=== PATIENT | female | born 1930 | race Caucasian/White ===

== ENCOUNTER 2017-04-17 22:57 | Emergency (ER) | payer MEDICARE, OTHER ==
[~2017-04-17] VITALS: Ht 152.4 cm; Wt 59.9 kg
[2017-04-17 23:05] VITALS: Ht 152.4 cm; Wt 59.9 kg
[2017-04-17 23:31] VITALS: BP 142/83
== END 2017-04-17 23:31 | disposition home or self-care (01) ==
LOC: ED 22:57
DX: S51.812A Laceration without foreign body of left forearm, initial encounter (principal); I10 Essential (primary) hypertension; E11.9 Type 2 diabetes mellitus without complications; Z88.1 Allergy status to other antibiotic agents; W22.8XXA Striking against or struck by other objects, initial encounter; Y93.89 Activity, other specified; Y99.8 Other external cause status; Y92.89 Other specified places as the place of occurrence of the external cause

== ENCOUNTER 2019-03-26 10:27 | Emergency (ER) | payer MEDICARE, OTHER ==
[~2019-03-26] VITALS: Ht 144.8 cm; Wt 59.0 kg
[2019-03-26 10:33] VITALS: Ht 144.8 cm; Wt 59.0 kg
[2019-03-26 12:52] VITALS: BP 134/62
== END 2019-03-26 12:52 | disposition home or self-care (01) ==
LOC: ED 10:27
DX: R05 Cough (principal); R06.02 Shortness of breath; R07.0 Pain in throat
CPT/HCPCS: 87804

== ENCOUNTER 2019-04-04 10:33 | Inpatient (IN) | payer OTHER, MEDICARE ==
[~2019-04-04] VITALS: Ht 134.6 cm; Wt 56.7 kg
[2019-04-04 10:50] VITALS: Ht 134.6 cm; Wt 56.7 kg
[2019-04-04 11:49] LABS: BASOPHIL % 0.2 % (0-2); PLATELET COUNT 390 x10^3mcL (130-400)
[2019-04-04 11:49] LABS: microscopic required? YES; urine erythrocyte NEGATIVE (NEGATIVE)
[2019-04-04 11:51] LABS: RED CELL DISTRIBUTION WIDTH 14.9 % (11.5-14.5)
[2019-04-04 11:55] LABS: CALCIUM 8.8 mg/dL (8.5-10.1); CARBON DIOXIDE 26.1 mmol/L (21-32); CHLORIDE SERUM 98 mmol/L (98-107); CREATININE SERUM 0.7 mg/dL (0.6-1.0); GLUCOSE SERUM 132 mg/dL (74-106); POTASSIUM SERUM 3.8 mmol/L (3.5-5.1); SODIUM SERUM 134 mmol/L (136-145)
[2019-04-04 12:00] LABS: ALBUMIN 3.4 g/dL (3.4-5.0); ALKALINE PHOSPHATASE 109 U/L (46-116); ALT/SGPT 39 U/L (14-59); AST/SGOT 31 U/L (15-37); BILIRUBIN TOTAL 0.4 mg/dL (0.20-1.00)
[2019-04-04 12:07] LABS: TOTAL PROTEIN, SERUM 8.5 g/dL (6.4-8.2)
[2019-04-04] MEDS ORDERED: AMLODIPINE BESY10 M2 PO (14:15)
[2019-04-04] MEDS ORDERED: ALPHAGAN P5 M1 OP ×2 (14:18→15:25)
[2019-04-04] MEDS ORDERED: MONTELUKAST SOD10 M1 PO (14:18)
[2019-04-04] MEDS ORDERED: TIMOLOL MALEATE5 M3 OU (14:21)
[2019-04-04] MEDS ORDERED: BASAGLAR K100 UNIT/1 SQ ×2 (14:24→15:23)
[2019-04-04 14:49] VITALS: BP 123/54
[2019-04-04] MEDS ORDERED: JANUVIA100 M1 PO (15:21)
[2019-04-04] MEDS ORDERED: ARICEPT10 MG PO (15:21)
[2019-04-04] MEDS ORDERED: FORTAMET500 M1 PO (15:22)
[2019-04-04] MEDS ORDERED: COZAAR25 M1 PO (15:23)
[2019-04-04] MEDS ORDERED: AZOPT10 ML OP (15:24)
[2019-04-04] MEDS ORDERED: LIPI10 PO (15:26)
[2019-04-04] MEDS ORDERED: ASPIR 8181 MG PO (15:29)
[2019-04-04 15:39] LABS: CHOLESTEROL/HDL RATIO 2.3; FREE T4 1.44 ng/dL (0.76-1.46); FREE THYROXINE INDEX 3.5 ug/dL (1.4-4.5); T4(THYROXINE) 10.9 ug/dL (4.7-13.3)
[2019-04-04 15:47] LABS: T3 TOTAL 1.04 ng/mL
[2019-04-04 17:01] VITALS: BP 144/62
[2019-04-04 18:17] VITALS: BP 144/62
[2019-04-04 19:43] LABS: AMPHETAMINE QUAL UR NONE DETECTED (See below)
[2019-04-04 22:18] VITALS: BP 148/55
[2019-04-04 23:30] VITALS: BP 138/56
[2019-04-05 06:35] VITALS: BP 143/60
[2019-04-05 07:04] LABS: BASOPHIL % 0.3 % (0-2); CALCIUM 8.5 mg/dL (8.5-10.1); CARBON DIOXIDE 25.9 mmol/L (21-32); CHLORIDE SERUM 105 mmol/L (98-107); CREATININE SERUM 0.5 mg/dL (0.6-1.0); PLATELET COUNT 377 x10^3mcL (130-400); POTASSIUM SERUM 3.6 mmol/L (3.5-5.1); SODIUM SERUM 142 mmol/L (136-145)
[2019-04-05 07:07] LABS: GLUCOSE SERUM 44 mg/dL (74-106)
[2019-04-05 07:19] LABS: RED CELL DISTRIBUTION WIDTH 14.9 % (11.5-14.5)
[2019-04-05 09:05] VITALS: BP 142/63
[2019-04-05 14:15] VITALS: BP 125/54
[2019-04-05 17:35] VITALS: BP 121/45
[2019-04-05 20:20] VITALS: BP 127/50
[2019-04-05 20:54] VITALS: BP 141/61
[2019-04-06 05:55] VITALS: BP 137/52
[2019-04-06 06:14] LABS: BASOPHIL % 0.1 % (0-2); PLATELET COUNT 367 x10^3mcL (130-400)
[2019-04-06 06:17] LABS: CALCIUM 8.4 mg/dL (8.5-10.1); CARBON DIOXIDE 27.8 mmol/L (21-32); CHLORIDE SERUM 103 mmol/L (98-107); CREATININE SERUM 0.9 mg/dL (0.6-1.0); GLUCOSE SERUM 296 mg/dL (74-106); POTASSIUM SERUM 3.8 mmol/L (3.5-5.1); SODIUM SERUM 139 mmol/L (136-145)
[2019-04-06 06:22] LABS: RED CELL DISTRIBUTION WIDTH 14.8 % (11.5-14.5)
[2019-04-06 08:17] VITALS: BP 146/62
[2019-04-06 12:11] VITALS: BP 139/53
[2019-04-06 16:33] VITALS: BP 141/54
[2019-04-06 20:13] VITALS: BP 152/61
[2019-04-07 05:46] VITALS: BP 126/51
[2019-04-07 06:16] LABS: BASOPHIL % 0 % (0-2); PLATELET COUNT 415 x10^3mcL (130-400); RED CELL DISTRIBUTION WIDTH 14.9 % (11.5-14.5)
[2019-04-07 06:42] LABS: CALCIUM 8.5 mg/dL (8.5-10.1); CARBON DIOXIDE 28.8 mmol/L (21-32); CHLORIDE SERUM 106 mmol/L (98-107); CREATININE SERUM 0.8 mg/dL (0.6-1.0); GLUCOSE SERUM 143 mg/dL (74-106); MAGNESIUM 2.5 mg/dL (1.8-2.4); POTASSIUM SERUM 3.5 mmol/L (3.5-5.1); SODIUM SERUM 143 mmol/L (136-145)
[2019-04-07 07:37] VITALS: BP 146/96
[2019-04-07 11:07] VITALS: BP 36/62
[2019-04-07 13:26] VITALS: BP 136/62
[2019-04-07 16:26] VITALS: BP 128/54
[2019-04-07 19:57] VITALS: BP 142/53
[2019-04-08 05:07] VITALS: BP 155/76
[2019-04-08 06:26] LABS: BASOPHIL % 0.1 % (0-2)
[2019-04-08 06:41] LABS: CALCIUM 8.1 mg/dL (8.5-10.1); CARBON DIOXIDE 28.4 mmol/L (21-32); CHLORIDE SERUM 106 mmol/L (98-107); CREATININE SERUM 0.8 mg/dL (0.6-1.0); GLUCOSE SERUM 188 mg/dL (74-106); POTASSIUM SERUM 3.2 mmol/L (3.5-5.1); SODIUM SERUM 143 mmol/L (136-145)
[2019-04-08 06:54] LABS: PLATELET COUNT 413 x10^3mcL (130-400)
[2019-04-08 08:23] VITALS: BP 150/61
[2019-04-08 12:17] VITALS: BP 136/64
[2019-04-08 17:04] VITALS: BP 137/61
[2019-04-08 20:08] VITALS: BP 146/81
[2019-04-09 05:10] VITALS: BP 136/58
[2019-04-09 08:08] VITALS: BP 148/55
[2019-04-09] MEDS ORDERED: NOVAPLUS ZOSYN50 ML IV (09:01)
[2019-04-09] MEDS ORDERED: SOL40I IV (09:14)
[2019-04-09] MEDS ORDERED: HUMULIN R100 U/1 M1 SC (09:16)
[2019-04-09] MEDS ORDERED: LANTI SQ (09:16)
[2019-04-09 09:39] VITALS: BP 148/55
== END 2019-04-09 11:05 | DRG 140 ==
LOC: ED 10:33 → DU 13:26
PROVIDERS: Emergency Medicine; Internal Medicine; ADMIT Family Medicine
DX: J44.1 Chronic obstructive pulmonary disease with (acute) exacerbation (principal); J69.0 Pneumonitis due to inhalation of food and vomit; J96.01 Acute respiratory failure with hypoxia; E11.65 Type 2 diabetes mellitus with hyperglycemia; J44.0 Chronic obstructive pulmonary disease with (acute) lower respiratory infection; E87.1 Hypo-osmolality and hyponatremia; F03.90 Unspecified dementia, unspecified severity, without behavioral disturbance, psychotic disturbance, mood disturbance, and anxiety; H40.9 Unspecified glaucoma; E78.00 Pure hypercholesterolemia, unspecified; I10 Essential (primary) hypertension; J20.9 Acute bronchitis, unspecified; E78.5 Hyperlipidemia, unspecified; Z79.4 Long term (current) use of insulin; Z79.899 Other long term (current) drug therapy; Z88.2 Allergy status to sulfonamides; Z90.710 Acquired absence of both cervix and uterus; Z88.8 Allergy status to other drugs, medicaments and biological substances; Z83.3 Family history of diabetes mellitus; Z82.49 Family history of ischemic heart disease and other diseases of the circulatory system; Z98.41 Cataract extraction status, right eye; Z98.42 Cataract extraction status, left eye
CPT/HCPCS: 36600; 82962; 83880; 84439; 87804; 92526-GN; 92610-GN; 97110-GP; 97116-GP; 97530-GP; G0378; J0456; J0696; J1815; J1956; J2543; J2920; J2930; J3490; J7040; J7613; J7626; J7644; Q0092